=== PATIENT | female | born 1960 | race Caucasian/White ===

== ENCOUNTER 2022-02-19 16:55 | Emergency (ER) | payer MEDICARE, OTHER ==
[2022-02-19] MEDS ORDERED: Iopamidol 370 76% 100 ML VIAL IV ONE (16:56)
[2022-02-19] MEDS ORDERED: Boostrix 0.5 ML (Tdap) VIAL ONE (17:24)
== END 2022-02-19 18:33 | disposition home or self-care (01) ==
LOC: MADERS 16:55
DX: S13.9XXA Sprain of joints and ligaments of unspecified parts of neck, initial encounter (principal); S30.1XXA Contusion of abdominal wall, initial encounter; S80.212A Abrasion, left knee, initial encounter; E27.8 Other specified disorders of adrenal gland; E78.2 Mixed hyperlipidemia; I10 Essential (primary) hypertension; J44.9 Chronic obstructive pulmonary disease, unspecified; G20 Parkinson's disease; F17.210 Nicotine dependence, cigarettes, uncomplicated; V48.6XXA Car passenger injured in noncollision transport accident in traffic accident, initial encounter; Z79.899 Other long term (current) drug therapy; Z79.82 Long term (current) use of aspirin
CPT/HCPCS: 70450; 71260; 72125; 74177; 90715; G0390; 90471; Q9967